=== PATIENT | female | born 1945 | race Caucasian/White ===

== ENCOUNTER 2023-06-20 10:44 | Inpatient (IN) | payer OTHER ==
--- OUTSIDE RECORDS SUMMARY | 2023-06-20 10:48 | XMS REPORT | Continuity of Care Document ---
Author Name Unknown Address 1200 [facility] [address] thconnect Address 1200 [facility]. 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 Role Phone Jaime Cardona Attending Clinician Jaime Martin Admitting Clinician Kathy torres Payers Payer Name Policy Type Policy Number Effective Date Expirati on Date Source Encounters Start Date/Time End Date/Time Encounter Type Admission Type Attending Clinicians Care Facility Care Department Encounter ID Source 2019-08-31 11:00:00 2019-08-31 11:00:00 Outpatient Jaime Cardona [facility] MMRI [id number] [facility] Results Test Description Test Time Test Comments Results Resul t Comments Source - MRI C-SPINE W/O CONT 2018-10-31 10:49:00 FAX: Jaime Ozuna [phone] [place]: St: REG Name: JUDE PERSON [facility] : 1945 Age/S: 73/F [address] [facility] Unit #: [id number] Loc: E.MRI [place], [place]: [place] [id number] Acct: [id number] Dis Date: Status: REG CLI PHONE #: [phone] Exam Date: 10/31/2018 1003 FAX #: [phone] Reason: CERVICALGIA EXAMS: CPT CODE: [id number] MRI C-SPINE W/O CONT 45068 Dictation location: U19. MRI CERVICAL SPINE WITHOUT CONTRAST HISTORY: Cervicalgia TECHNIQUE: Multiplanar and multiple pulse sequences were obtained through the cervical spine without contrast. COMPARISON: None. FINDINGS: The cervical alignment is straightened. The C1-C2 relation and craniocervical junction are preserved. No signal intensity changes are present in the spinal cord. At the C2-C3 level, no spinal canal stenosis or neuroforaminal narrowing. At the C3-C4 level, 5 mm central disc protrusion and bilateral uncovertebral hypertrophy causes up to mild spinal canal stenosis without neuroforaminal narrowing. At the C4-C5 level, bilateral uncovertebral hypertrophy causes no significant spinal canal stenosis and mild left neuroforaminal narrowing. At the C5-C6 level, posterior disc and osteophyte complex and ligamentum flavum thickening causes moderate spinal canal stenosis and severe bilateral neuroforaminal narrowing. At the C6-C7 level, posterior disc and osteophyte complex causes mild spinal canal stenosis severe left neuroforaminal narrowing. At the C7-T1 level, no spinal canal stenosis or neuroforaminal narrowing. Mild bone marrow edema seen along the endplates of C5-C6 likely related to Modic type I endplate degenerative changes. IMPRESSION: PAGE 1 Signed Report (CONTINUED) FAX: Jaime Ozuna [phone] [place]: St: REG Name: JUDE PERSON [facility] : 1945 Age/S: 73/F [address] [employer] Unit #: [id number] Loc: E.MRI [place], [place]: [place] [id number] Acct: [id number] Dis Date: Status: REG CLI PHONE #: [phone] Exam Date: 10/31/2018 1003 FAX #: [phone] Reason: CERVICALGIA EXAMS: CPT CODE: [id number] MRI C-SPINE W/O CONT 59700 (Continued) Moderate cervical spondylosis with severe neuroforaminal narrowing at C5-C6 and C6-C7. Up to moderate spinal canal stenosis greatest at C5-C6. at 1049 Reported and signed by: Demetrice Barrios M.D. CC: Jaime Cardona MD Technologist: GLORIA CORRALES [facility] Date/Time/By: 10/31/2018 (1920) : By: [email or web address] PAGE 2 Signed Report FAX: Jaime Ozuna [phone] [place]: St: REG Name: JUDE PERSON [facility] : 1945 Age/S: 73/F [address] [facility] [employer] Unit #: [id number] Loc: E.MRI [place], [place]: [place] [id number] Acct: [id number] Dis Date: Status: REG CLI PHONE #: [phone] Exam Date: 10/31/2018 1003 FAX #: [phone] Reason: CERVICALGIA EXAMS: CPT CODE: [id number] MRI C-SPINE W/O CONT 09869 (Continued) Orig Print D/T: S: 10/31/2018 (6420) PAGE 3 Signed Report
--- NOTE | 2023-06-20 11:15 | RAD REPORT ---
EXAM DESCRIPTION: RAD - Chest Single View - 06/20/2023 11:09 am CLINICAL HISTORY: hypotension Chest pain. COMPARISON: Chest Pa And Lat (2 Views) dated 08/19/2018; Chest Single View dated 04/20/2016; CHEST PA AND LAT 2 VIEW dated 08/25/2013; CHEST SINGLE VIEW dated 04/30/2012 FINDINGS: Portable technique limits examination quality. The lungs are emphysematous but grossly clear. The heart is normal in size. No displaced fractures. IMPRESSION: No acute intrathoracic process suspected.
[2023-06-20 12:09] LABS: Hematocrit 39.6 % (36.0-45.0); MCV 94.7 fL (80-100); Platelets 353 thou/uL (152-406); RBC Red Blood Cell Count 4.18 M/uL (3.86-4.86)
[2023-06-20 12:10] LABS: Absolute Lymphocytes (CBC) 0.9 K/uL (0.7-4.9); Lymphocytes % 4.9 % (15.3-44.8); MPV 7.8 fL (7.6-11.3)
[2023-06-20 12:17] LABS: Protime INR 1.17
[2023-06-20 12:29] LABS: Bilirubin Total 0.7 mg/dL (0.2-1.0); Protein, Total 7.5 g/dL (6.4-8.2)
[2023-06-20 12:31] LABS: Blood Morphology Comment NOT SEEN (NOT SEEN); Platelet Estimate ADEQ; White Blood Cell Scan OK (OK)
[2023-06-20 12:33] LABS: Troponin High Sensitivity 260.3 pg/mL (<58.9)
--- NOTE | 2023-06-20 12:39 | RAD REPORT ---
EXAM DESCRIPTION: CT - Head C Spine Cap Terrence Juan - 06/20/2023 12:17 pm CLINICAL HISTORY: Trauma, head and neck injury. Chest, abdomen and pelvis pain. fall, hypotension, head/back pain COMPARISON: <Comparisons> TECHNIQUE: CT head without contrast. CT cervical spine without contrast with coronal and sagittal reformatted images. CT chest, abdomen and pelvis with IV contrast (approximately 100 mL nonionic IV contrast) with estes l and sagittal reformatted images of the spine. All CT scans are performed using dose optimization technique as appropriate and may include automated exposure control or mA/KV adjustment according to patient size. FINDINGS: CT HEAD WITHOUT CONTRAST: No intracranial hemorrhage, hydrocephalus or extra-axial fluid collection. Moderate generalized brain atrophy is present with mild periventricular and deep white matter chronic microvascular ischemic ch anges. No areas of brain edema or midline shift. The paranasal sinuses and mastoids are essentially clear. The calvarium is intact. CT CERVICAL SPINE WITHOUT CONTRAST: No fracture or subluxation. Moderate multilevel cervical degenerative changes are present, most notab le at C5-6. The prevertebral soft tissues are normal in thickness. CT CHEST, ABDOMEN, PELVIS WITH CONTRAST: The lungs are emphysematous with mild atelectasis in the posterior right lower lobe.No pneumothorax o r pericardial/pleural fluid. No evidence of intra-abdominal visceral injury, free fluid or free air. Moderate stool is present thr oughout the colon. No pelvic mass or hematoma. Mild osteoporotic compression deformities are seen involving T8 and T12, age indeterminate. Paraspina l soft tissues at this level are slightly thickened. IMPRESSION: Negative for definitive acute traumatic findings. Age indeterminate mild compression fractures involving the thoracic spine. These may represent acute to subacute time frame fractures given the mild thickening of the surrounding paraspinal tissues. Fol low-up nonemergent MRI imaging could be performed if the patient has significant back pain.
[2023-06-20 12:53] LABS: Specific Gravity 1.023 (1.005-1.030); Urine Bacteria >50 /HPF (<20); Urine Bilirubin NEGATIVE (Negative); Urine Blood Trace (Negative); Urine Clarity Extremely Turbid (Clear); Urine Color Yellow (Yellow); Urine Glucose NEGATIVE (Negative); Urine Mucus 1+ /HPF (None Seen); Urine Protein 1+ (Negative); Urine RBC <5 /HPF (None Seen); Urine Urobilinogen Normal (Normal)
[2023-06-20] MEDS ORDERED: CEFTRIAXONE 1000 MG/VIAL ONE ×2 (13:01→20:42)
[2023-06-20] MEDS ORDERED: ASPIRIN 81 MG CHEWABLE TABLET ONE (13:01)
[2023-06-20] MEDS ORDERED: NA CHLORIDE 0.9% 500 ML ONE ×2 (13:02→20:42)
--- NOTE | 2023-06-20 13:28 | RAD REPORT ---
EXAM DESCRIPTION: RAD - Ankle Left 3 View - 06/20/2023 1:06 pm CLINICAL HISTORY: PAIN COMPARISON: No comparisons TECHNIQUE: Left ankle, 3 views. FINDINGS: No fracture, dislocation or periosteal reaction. Advanced tibiotalar joint degenerative ch anges with osseous remodeling and joint space loss. Soft tissue densities along the periarticular reg ion most pronounced anteriorly and posteriorly, suggestive of a joint effusion or possibly non minera lized intra-articular bodies. Deformity of the distal tibia shaft may indicate sequelae of a remote f racture. . No soft tissue abnormality. IMPRESSION: No acute osseous abnormality. Advanced degenerative changes at the tibiotalar articulati on. Large joint effusion versus non mineralized intra-articular bodies.
--- NOTE | 2023-06-20 14:33 | EDPHYS ---
Physician Documentation [facility] Name: Soraya Collier Age: 77 yrs Sex: Female : 1945 Arrival Date: 06/20/2023 Time: 10:44 Bed 15 Private MD: ED Physician Brad Curran HPI: 06/20 14:02 This 77 yrs old Female presents to ER via EMS with complaints of Blood Pressure rn Problem, falls. 14:02 Details of fall: The patient fell from an upright position. Onset: The symptoms/episode rn began/occurred just prior to arrival. Associated injuries: The patient sustained injury to the head, Left ankle. Severity of symptoms: At their worst the symptoms were mild, in the emergency department the symptoms are unchanged. The patient has experienced similar episodes in the past. Patient reports multiple episodes of falls recently, fall prior to arrival, got lightheaded, struck head and injured left ankle. Unable to walk on ankle. Has history of atrial fibrillation and noted to be heart rate in 150s with hypotension with EMS. Patient reports overall feels better and is noncompliant with A-fib medication including blood thinners due to cost.. Historical: - Allergies: 10:49 No Known Allergies; bp - Home Meds: 10:49 hydrocodone-acetaminophen 7.5-325 mg Oral tablet [Active]; irbesartan 150 mg oral bp tablet [Active]; aspirin 81 mg Oral tablet,chewable [Active]; memantine 10 mg oral tablet [Active]; atorvastatin 10 mg oral tablet [Active]; - PMHx: 10:49 Atrial Fib; Dementia; bp 11:01 Chronic obstructive lung disease; bp - Immunization history:: Adult Immunizations up to date. - Social history:: Smoking status: Patient denies any tobacco usage or history of. - Family history:: not pertinent. - Hospitalizations: : No recent hospitalization is reported. ROS: 14:02 Constitutional: Negative for fever, chills, and weight loss, Eyes: Negative for injury, rn pain, redness, and discharge, Neck: Negative for injury, pain, and swelling, Cardiovascular: Positive for palpitations Respiratory: Negative for shortness of breath, cough, wheezing, and pleuritic chest pain, Abdomen/GI: Negative for abdominal pain, nausea, vomiting, diarrhea, and constipation, Back: Positive for chronic back pain MS/Extremity: Positive for left ankle pain Skin: Negative for injury, rash, and discoloration, Neuro: Positive for generalized weakness Exam: 14:02 Constitutional: This is a well developed, well nourished patient who is awake, alert, rn and in no acute distress. Head/Face: Normocephalic, contusion to left periorbital region without laceration Cardiovascular: Regular rate and rhythm. No pulse deficits. Respiratory: No increased work of breathing, no retractions or nasal flaring. Abdomen/GI: Soft, non-tender MS/ Extremity: Pulses equal, no cyanosis. Neuro: Awake and alert, GCS 15, moves all 4 extremities with equal strength. Sensation intact. No facial droop. Follows all commands. Oriented to person but not time. 14:02 ECG was reviewed by the Attending Physician. rn Vital Signs: 10:48 BP 85 / 40; Pulse 120; bp 10:48 BP 148 / 61; Pulse 90; Resp 16; Temp 97.8; Pulse Ox 99% on 3 lpm NC; bp 12:30 BP 151 / 75; Pulse 97; Resp 16; Pulse Ox 99% ; bp 14:24 BP 153 / 92; Pulse 87; Resp 16; Pulse Ox 100% ; bp 19:50 BP 136 / 103; Pulse 85; Resp 17 S; Temp 98.1; Pulse Ox 97% on R/A; ha1 10:48 ON SCENE bp MDM: 10:47 Patient medically screened. rn 14:09 Differential diagnosis: abrasion, closed head injury, contusion, fracture, sprain, rn strain. Data reviewed: vital signs, nurses notes, lab test result(s), EKG, radiologic studies, CT scan, plain films, and as a result, I will admit patient. Consideration of Admission/Observation Patient was admitted/placed on observation. Escalation of care including admission/observation considered. Care significantly affected by the following chronic conditions: afib, dementia. Counseling: I had a detailed discussion with the patient and/or guardian regarding the historical points, exam findings, and any diagnostic results supporting the discharge/admit diagnosis, lab results, radiology results, the need for outpatient follow up, to return to the emergency department if symptoms worsen or persist or if there are any questions or concerns that arise at home. 06/20 10:51 Order name: Blood Culture Adult (2) rn 06/20 10:51 Order name: CBC with Diff; Complete Time: 12:38 rn 06/20 10:51 Order name: CMP; Complete Time: 12:38 rn 06/20 10:51 Order name: Lactate w/ 2H reflex if indic.; Complete Time: 12:38 rn 06/20 10:51 Order name: Protime (+inr); Complete Time: 12:38 rn 06/20 10:51 Order name: Ptt, Activated; Complete Time: 12:38 rn 06/20 10:51 Order name: Urinalysis w/ reflexes; Complete Time: 13:15 rn 06/20 10:51 Order name: Troponin High Sensitivity; Complete Time: 12:38 rn 06/20 10:51 Order name: BNP; Complete Time: 12:38 rn 06/20 12:14 Order name: CBC Smear Scan; Complete Time: 12:38 EDAK 06/20 12:32 Order name: Manual Differential; Complete Time: 12:38 [facility] 06/20 12:48 Order name: CREATININE WHOLE BLOOD; Complete Time: 13:15 [facility] 06/20 10:51 Order name: Chest Single View XRAY; Complete Time: 12:38 rn 06/20 10:51 Order name: CT Traumagram (Head C Spine CAP W Con); Complete Time: 12:40 rn 06/20 12:38 Order name: XRAY Ankle LEFT 3 view; Complete Time: 13:39 rn 06/20 10:51 Order name: EKG; Complete Time: 10:51 rn 06/20 10:51 Order name: Accucheck; Complete Time: 10:59 rn 06/20 10:51 Order name: Cardiac monitoring; Complete Time: 10:59 rn 06/20 10:51 Order name: EKG - Nurse/Tech; Complete Time: 12:39 rn 06/20 10:51 Order name: IV Saline Lock - Large Bore; Complete Time: 10:59 rn 06/20 10:51 Order name: Labs collected and sent; Complete Time: 11:58 rn 06/20 10:51 Order name: O2 Per Protocol; Complete Time: 10:59 rn 06/20 10:51 Order name: O2 Sat Monitoring; Complete Time: 10:59 rn 06/20 10:51 Order name: Vital Signs; Complete Time: 10:59 rn 06/20 15:11 Order name: Misc. Order: consult drug abuse social worker; Complete Time: 17:25 rn EC:02 Rate is 89 beats/min. Rhythm is regular. QRS Clio is Normal. HI interval is normal. QRS rn interval is normal. QT interval is normal. No Q waves. T waves are Normal. No ST changes noted. Clinical impression: NSR w/ Non-specific ST/T Changes. Interpreted by me. Reviewed by me. Administered Medications: 10:59 Drug: NS 0.9% IV 500 ml IV at bolus once Route: IV; Rate: bolus; Site: left antecubital;bp 13:00 Drug: Rocephin IV 1 grams IV at calculated rate once; Given slow IV push per pharmacy bp instructions Route: IV; Rate: calculated rate; Site: left antecubital; 13:00 Drug: Aspirin PO Chewable Tablet 324 mg PO once; 81 mg tablets x 4 Route: PO; bp 15:19 Follow up: Response: No adverse reaction bp 16:37 Drug: [place] PO 10 mg-325 mg 1 tabs PO once Route: PO; bp Disposition Summary: 06/20/23 14:33 Hospitalization Ordered Notes: Hospitalization Status: Inpatient Admission rn Provider: Lito Noble rn Condition: Stable rn Problem: new rn Symptoms: have improved rn Bed/Room Type: Standard rn Location: Telemetry/MedSurg (Inpatient)(06/20/23 20:31) jb4 Room Assignment: [facility](06/20/23 20:31) jb4 Diagnosis - Paroxysmal atrial fibrillation rn - Weakness rn - Unspecified injury of head, initial encounter rn - Sprain of unspecified ligament of left ankle, initial encounter rn - 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 EDAK EDMS 18:39 14:33 Telemetry/MedSurg (Inpatient) rn kb3 18:39 14:33 rn kb3 20:31 18:39 [facility] ER HOLD kb3 jb4 20:31 18:39 ERHOLD- kb3 jb4
--- NOTE | 2023-06-20 14:33 | ER ---
Nurse's Notes [facility] Name: Soraya Collier Age: 77 yrs Sex: Female : 1945 Arrival Date: 06/20/2023 Time: 10:44 Bed 15 Private MD: Diagnosis: Paroxysmal atrial fibrillation;Weakness;Unspecified injury of head, initial encounter;Sprain of unspecified ligament of left ankle, initial encounter;Wedge compression fracture of unspecified thoracic vertebra-subacute, mild Presentation: 06/20 10:48 Chief complaint: EMS states: FALLS AND LOW BP. Coronavirus screen: At this time, the bp client does not indicate any symptoms associated with coronavirus-19. Ebola Screen: No symptoms or risks identified at this time. Initial Sepsis Screen: Does the patient meet any 2 criteria? No. Patient's initial sepsis screen is negative. Does the patient have a suspected source of infection? No. Patient's initial sepsis screen is negative. Risk Assessment: Do you want to hurt yourself or someone else? Patient reports no desire to harm self or others. Onset of symptoms is unknown. 10:48 Method Of Arrival: EMS: [facility] bp 10:48 Acuity: REN 3 bp Triage Assessment: 10:48 General: Appears in no apparent distress. slender, Behavior is calm, cooperative, bp anxious. Pain: Denies pain. Historical: - Allergies: 10:49 No Known Allergies; bp - Home Meds: 10:49 hydrocodone-acetaminophen 7.5-325 mg Oral tablet [Active]; irbesartan 150 mg oral bp tablet [Active]; aspirin 81 mg Oral tablet,chewable [Active]; memantine 10 mg oral tablet [Active]; atorvastatin 10 mg oral tablet [Active]; - PMHx: 10:49 Atrial Fib; Dementia; bp 11:01 Chronic obstructive lung disease; bp - Immunization history:: Adult Immunizations up to date. - Social history:: Smoking status: Patient denies any tobacco usage or history of. - Family history:: not pertinent. - Hospitalizations: : No recent hospitalization is reported. Screenin:50 [facility] ED Fall Risk Assessment (Adult) History of falling in the last 3 months, bp including since admission Yes- fall prone (multiple falls) (3 pts). Abuse screen: Denies threats or abuse. Denies injuries from another. Nutritional screening: No deficits noted. Tuberculosis screening: No symptoms or risk factors identified. Assessment: 10:50 General: PT DENIES ACUTE MEDICAL COMPLAINT OR PAIN. bp 12:30 Reassessment: No changes from previously documented assessment. Patient is alert, bp oriented x 3, equal unlabored respirations, skin warm/dry/pink. 14:27 Reassessment: Patient appears in no apparent distress at this time. Patient and/or bp family updated on plan of care and expected duration. Pain level reassessed. 20:25 Reassessment: attempted to give report . ha1 21:00 Reassessment: report given to RUDY Ruiz. ha1 Vital Signs: 10:48 BP 85 / 40; Pulse 120; bp 10:48 BP 148 / 61; Pulse 90; Resp 16; Temp 97.8; Pulse Ox 99% on 3 lpm NC; bp 12:30 BP 151 / 75; Pulse 97; Resp 16; Pulse Ox 99% ; bp 14:24 BP 153 / 92; Pulse 87; Resp 16; Pulse Ox 100% ; bp 19:50 BP 136 / 103; Pulse 85; Resp 17 S; Temp 98.1; Pulse Ox 97% on R/A; ha1 10:48 ON SCENE bp ED Course: 10:47 Patient arrived in ED. bp 10:47 Brad Curran MD is Attending Physician. rn 10:48 Ari Myers, RUDY is Primary Nurse. bp 10:49 Triage completed. bp 10:50 Patient has correct armband on for positive identification. bp 11:00 Inserted Maintain EMS IV. Dressing intact. Good blood return noted. Site clean \T\ dry. bp Gauge \T\ site: 18 GA LEFT AC. 11:01 Arm band placed on. bp 11:10 Chest Single View XRAY In Process Unspecified. EDMS 11:53 Lab(s) recollected, by me, sent to lab. First set of blood cultures drawn by me. em1 Inserted saline lock: 22 gauge in right forearm, using aseptic technique. Blood collected. 11:57 BNP Sent. em1 11:57 Troponin High Sensitivity Sent. em1 11:57 CBC with Diff Sent. em1 11:57 CMP Sent. em1 11:57 Lactate w/ 2H reflex if indic. Sent. em1 11:57 Protime (+inr) Sent. em1 11:57 Ptt, Activated Sent. em1 12:19 CT Traumagram (Head C Spine CAP W Con) In Process Unspecified. EDMS 13:07 XRAY Ankle LEFT 3 view In Process Unspecified. EDMS 14:32 Lito Noble is Hospitalizing Provider. rn 21:12 No provider procedures requiring assistance completed. Patient admitted, IV remains in ha1 place. 21:13 Provided Education on: need for admit . ha1 Administered Medications: 10:59 Drug: NS 0.9% IV 500 ml IV at bolus once Route: IV; Rate: bolus; Site: left antecubital;bp 13:00 Drug: Rocephin IV 1 grams IV at calculated rate once; Given slow IV push per pharmacy bp instructions Route: IV; Rate: calculated rate; Site: left antecubital; 13:00 Drug: Aspirin PO Chewable Tablet 324 mg PO once; 81 mg tablets x 4 Route: PO; bp 15:19 Follow up: Response: No adverse reaction bp 16:37 Drug: [place] PO 10 mg-325 mg 1 tabs PO once Route: PO; bp Medication: 10:50 VIS not applicable for this client. bp Outcome: 14:33 Decision to Hospitalize by Provider. rn 21:12 Admitted to Med/surg accompanied by tech, family with patient, via stretcher, room 212, ha1 21:12 Condition: stable 21:12 Discharge instructions given to patient, family, Instructed on the need for admit, Demonstrated understanding of instructions, 21:24 Patient left the ED. ha1 Signatures: Dispatcher [employer] EDMS Brad Curran MD MD rn Martinez, Eric em1 Ari Myers RN RN bp Ayala, Heidy, RN RN ha1
[2023-06-20] MEDS ORDERED: HYDROCODONE/APAP 10/325 TAB ONE (16:33)
--- NOTE | 2023-06-20 17:28 | P.HP ---
Certification for Inpatient Patient admitted to: Observation With expected LOS: >2 Midnights Patient will require the following post-hospital care: None Practitioner: I am a practitioner with admitting privileges, knowledge of patient current condition, hospital course, and medical plan of care. Services: Services provided to patient in accordance with Admission requirements found in Title 42 Section 412.3 of the Code of Federal Regulations Patient History Date of Service: 06/20/23 Reason for admission: Afib with RVR History of Present Illness: Soraya Fernandes is a 77-year-old female with medical past medical history of atrial fibrillation, Alzheimer's, COPD who presents to the ED with complaints of frequent falls. EMS reports hypotension and Afib with RVR during transit. ER has stabilized condition. Family reports she has fallen frequently but was able to ambulate and cook for herself a few days ago. reports she had run out of Alzheimer's medication and heart medication. He is unable to afford the heart medication due to the new hobbs. He is working with social service coordinator to provide help at home. On examination, she was extremely agitated, coming out of the bed, and confused. Facial bruising present to left maxilla. Bruising to left ankle. and son at the bedside and son plans to stay the night to be her sitter. Initial vitals BP 148 / 61; Pulse 90; Resp 16; Temp 97.8; Pulse Ox 99% on 3 lpm NC Laboratory evaluation WBC 19.4, neutrophils 90.4, potassium 3.0, troponin 260.3, BNP 2423, UA with bacteria greater than 50, hyaline casts 5-10. Left ankle x-ray reports "No acute osseous abnormality. Advanced degenerative changes at the tibiotalar articulation. Large joint effusion versus non mineralized intra-articular bodies." CT head reports "No intracranial hemorrhage, hydrocephalus or extra-axial fluid collection. Moderate generalized brain atrophy is present with mild periventricular and deep white matter chronic microvascular ischemic changes. No areas of brain edema or midline shift. The paranasal sinuses and mastoids are essentially clear. The calvarium is intact" CT c spine reports " No fracture or subluxation. Moderate multilevel cervical degenerative changes are present, most notable at C5-6. The prevertebral soft tissues are normal in thickness." CT CAP with contrast reports "Negative for definitive acute traumatic findings. Age indeterminate mild compression fractures involving the thoracic spine. These may represent acute to subacute time frame fractures given the mild thickening of the surrounding paraspinal tissues. Follow-up nonemergent MRI imaging could be performed if the patient has significant back pain." CXR reports "Portable technique limits examination quality. The lungs are emphysematous but grossly clear. The heart is normal in size. No displaced fractures. IMPRESSION: No acute intrathoracic process suspected." Soraya will be admitted to hospitalist service for further evaluation and treatment. of Afib with RVR. Her son will stay the night to sit with her Allergies No Known Allergies Allergy (Unverified 04/30/12 12:37) Home Medications: Aclidinium [employer] [Tudorza Pressair] 400 mcg IH BID 04/30/12 Cyanocobalamin [Vitamin B-12*] 1,000 mcg PO DAILY 04/30/12 Multivitamin [Multivitamins] 1 each PO DAILY 04/30/12 diazePAM [Valium*] 0.5 mg PO QIDP PRN 04/30/12 predniSONE [Prednisone*] 10 mg PO DAILY 04/30/12 Guaif/Dm [Robitussin Dm] 5 ml PO Q4HP PRN #0 ucup 05/02/12 Nicotine [Nicoderm Cq] 1 each TD DAILY #0 patch.td24 05/02/12 Rivaroxaban [Xarelto] 20 mg PO DAILY #30 tablet 05/02/12 Sotalol HCl [Betapace*] 80 mg PO BID #60 tab 05/02/12 - Past Medical/Surgical History Diabetic: No -: Alzheimer's -: COPD -: Atrial fibrillation -: Frequent falls Past Surgical History: Reviewed- Non-Contributory - Social History Alcohol use: No CD- Drugs: Yes Caffeine use: Yes Review of Systems is unable to be obtained Physical Examination - Physical Exam General: Alert, Confused HEENT: Other (Bruising to left maxilla) Neck: 2+ carotid pulse no bruit, JVD not distended Respiratory: Clear to auscultation bilaterally Cardiovascular: No edema, Normal pulses, Regular rate/rhythm, Normal S1 S2 Capillary refill: <2 Seconds Gastrointestinal: Normal bowel sounds, Soft and benign, Non-distended, No tenderness Integumentary: Skin breakdown (face and left ankle) Neurological: Other (not conversing) - Studies Laboratory Data (last 24 hrs) 06/20/23 06/20/2306/20/24 11:53 11:53 11:53 WBC 19.40 H Hgb 13.3 Hct 39.6 Plt Count 353 PT 12.8 H INR 1.17 APTT 31.3 Sodium 140 Potassium 3.0 L BUN 25 H Creatinine 0.95 Glucose 124 H Total Bilirubin 0.7 AST 11 L ALT 13 Alkaline Phosphatase 133 H Assessment and Plan - Plan Assessment and plan Trauma falls, frequent falls, history of Alzheimer noncompliant with alzheimer medications Mild compression fracture involving thoracic spine Aggitation -Restart home medication when available -Pain medication -Supportive care -Son will be with a sitter eddie 06/20 -TUBE WINDER HAND consulted -PT consult -UA with hyaline casts 5-10 -IV fluids 500 mL normal saline given in the ED Afib with RVR in a patient with Afib, noncompliant Elevated troponin -Restart home medications when available -BNP 2423 -Troponin 260.3, serial pending -Cardiology consult -IV fluids 500 mL normal saline given in the ED -EKG- Rate is 89 beats/min. Rhythm is regular. QRS [place] is Normal. [place] interval is normal. QRS interval is normal. QT interval is normal. No Q waves. T waves are Normal. No ST changes noted. Clinical impression: NSR w/ Non-specific ST/T Changes. Weakness 2/2 dehydration Cachectic Decreased p.o. intake -Consult dietitian -Monitor nutrition UTI Leukocytosis -WBC 19.4, neutrophils 90.4 -UA with bacteria greater than 50, -Rocephin Hypokalemia -Potassium 3.0 -Replace as needed -Monitor in a.m. lab History of COPD -Oxygen supplementation, on 3 LNC in ED -Restart home medications when available DVT PPx Lovenox DNR LOS 2 to 3 days Discharge Plan: Home Plan to discharge in: 48 Hours - Advance Directives Does patient have a Living Will: No Does patient have a Durable POA for Healthcare: No Time Spent Managing Pts Care (In Minutes): 50
[2023-06-20] MEDS ORDERED: LORazepam 2 MG/ML VIAL IV PRN (18:02)
[2023-06-20] MEDS: FUROSEMIDE 40 MG/4 ML VIAL IV SCH (20:00)
[2023-06-20] MEDS: KCL 20 MEQ/100 mL IVPB 20 MEQ/100 ML BAG IV SCH (20:00)
[2023-06-20] MEDS ORDERED: FUROSEMIDE 40 MG/4 ML VIAL ONE (20:42)
[2023-06-20] MEDS ORDERED: NA CHLORIDE 0.9% 50 ML ONE (20:44)
[2023-06-20] MEDS: CEFTRIAXONE 1,000 MG in NA CHLORIDE 0.9% 50 ML IVPB SCH (20:59)
[2023-06-20] MEDS ORDERED: ONDANSETRON 4 MG/2 ML VIAL IV PRN (21:08)
[2023-06-20 21:52] VITALS: BMI 14.2
[2023-06-20] MEDS ORDERED: LORazepam 2 MG/ML VIAL ONE (22:56)
[2023-06-20] MEDS: LORazepam 2 MG/ML VIAL IV PRN (23:02)
[2023-06-21] MEDS: METOPROLOL TARTRATE 5 MG/5 ML INJ IV PRN (00:12)
[2023-06-21 04:19] LABS: Absolute Lymphocytes (CBC) 2.1 K/uL (0.7-4.9); Hematocrit 38.1 % (36.0-45.0); Lymphocytes % 18.7 % (15.3-44.8); MCV 94.9 fL (80-100); Platelets 358 thou/uL (152-406); RBC Red Blood Cell Count 4.01 M/uL (3.86-4.86)
[2023-06-21 05:00] LABS: Magnesium 1.8 mg/dL (1.6-2.4)
[2023-06-21 05:18] LABS: Potassium 2.4 mEq/L (3.5-5.1); Troponin High Sensitivity 165.3 pg/mL (<58.9)
[2023-06-21] MEDS ORDERED: KCL 20 MEQ/100 mL IVPB 20 MEQ/100 ML BAG IV SCH (06:00)
[2023-06-21] MEDS: KCL 20 MEQ/100 mL IVPB 20 MEQ/100 ML BAG IV SCH (06:03)
[2023-06-21] MEDS: MORPHINE 2 MG/ML SYR IV PRN (10:09)
[2023-06-21] MEDS: NICOTINE 21 MG/PAT TD SCH (12:30)
[2023-06-21] MEDS: LORAZEPAM 1 MG TABLET PO PRN (12:30)
--- NOTE | 2023-06-21 12:52 | ECHO ---
HEIGHT: 6 ft 0 in WEIGHT: 105 lb 0 oz DATE OF STUDY: 06/21/[address]: Vania Begum 2-DIMENSIONAL: YES M.MODE: YES DOPPLER: YES COLOR FLOW: YES TDS: PORTABLE: YES DEFINITY: BUBBLE STUDY: DIAGNOSIS: ELEVATED BNP CARDIAC HISTORY: CATHERIZATION: NO SURGERY: NO PROSTHETIC VALVE: NO PACEMAKER: NO MEASUREMENTS (cm) DIASTOLIC (NORMALS) SYSTOLIC (NORMALS) IVSd 0.8 (0.6-1.2) LA Diam 2.9 (1.9-4.0) LVEF 55% LVIDd 3.4 (3.5-5.7) LVIDs 2.5 (2.0-3.5) %FS 28% LVPWd 0.9 (0.6-1.2) Ao Diam 2.8 (2.0-3.7) 2 DIMENSIONAL ASSESSMENT: RIGHT ATRIUM: NORMAL LEFT ATRIUM: NORMAL RIGHT VENTRICLE: NORMAL LEFT VENTRICLE: NORMAL TRICUSPID VALVE: MODERATE TRICUSPID REGURGITATION MITRAL VALVE: TRACE MITRAL REGURGITATION PULMONIC VALVE: NOT VISUALIZED AORTIC VALVE: NORMAL PERICARDIAL EFFUSION: NONE AORTIC ROOT: NORMAL LEFT VENTRICULAR WALL MOTION: NORMAL DOPPLER/COLOR FLOW: GRADE I DIASTOLIC DYSFUNCTION COMMENTS: 1. NORMAL LEFT VENTRICULAR SYSTOLIC FUNCTION, EJECTION FRACTION 55-60%, NORMAL WALL MOTION 2. GRADE I DIASTOLIC DYSFUNCTION 3. MODERATE TRICUSPID REGURGITATION 4. MILD PULMONARY HYPERTENSION, RIGHT VENTRICULAR SYSTOLIC PRESSURE 35-40 mmHg TECHNOLOGIST: LOIDA BRIGGS
[2023-06-21] MEDS: HALOPERIDOL LACT 5 MG/ML INJ IV PRN (13:51)
[2023-06-21] MEDS: ENSURE ENLIVE 237 ML CAN PO SCH (13:55)
--- NOTE | 2023-06-21 15:23 | P.PN ---
Date of Service: 06/21/23 Subjective Sleeping with at the bedside Extremely confused requiring Haldol family at bedside ROS 10 point ROS as noted above, otherwise negative Physical Exam General: sleeping, cachectic, confused when awake HEENT: Other (Bruising to left maxilla) Neck: 2+ carotid pulse no bruit, JVD not distended Respiratory: Clear to auscultation bilaterally Cardiovascular: No edema, Normal pulses, RRR, Normal S1 S2, no murmur noted Capillary refill: <2 Seconds Gastrointestinal: Normal bowel sounds, Soft and benign, ND/NT on palpation Integumentary: Skin breakdown (face and left ankle) Neurological: Other (not conversing) Vitals Reviewed Problem list Trauma falls, frequent falls, history of Alzheimer noncompliant with alzheimer medications Mild compression fracture involving thoracic spine Aggitation Afib with RVR in a patient with Afib, noncompliant Elevated troponin Weakness 2/2 dehydration Cachectic Decreased p.o. intake UTI Leukocytosis Hypokalemia History of COPD Assessment and Plan Trauma falls, frequent falls, history of Alzheimer noncompliant with alzheimer medications Mild compression fracture involving thoracic spine Aggitation -Continue home medication when available -Pain medication -Supportive care -Family Sitting with with her all day and night -ANALYST PROGRAMMER consulted -PT consult -UA with hyaline casts 5-10 -IV fluids 500 mL normal saline given in the ED Afib with RVR in a patient with Afib, noncompliant Elevated troponin -Restart home medications when available -BNP 2423 -Troponin 260.3, 199.6, 165.3 -Cardiology consult- recommended losartan 25 mg TID, lasix 20 mg D, stop lovenox, continue ASA- high fall risk, will not tolerate NOAC -IV fluids 500 mL normal saline given in the ED -EKG- Rate is 89 beats/min. Rhythm is regular. QRS [place] is Normal. [place] interval is normal. QRS interval is normal. QT interval is normal. No Q waves. T waves are Normal. No ST changes noted. Clinical impression: NSR w/ Non-specific ST/T Changes. Weakness 2/2 dehydration Cachectic Decreased p.o. intake -Consult dietitian -Monitor nutrition UTI Leukocytosis -WBC 11.10, neutrophils 73.3- improved -UA with bacteria greater than 50, -Rocephin Hypokalemia -Potassium 2.4 -Replace as needed -Monitor in a.m. lab History of COPD -Oxygen supplementation, on 3 LNC in ED -Restart home medications when available DVT PPx Lovenox- cardiology recommends stopping, not a candidate for aggressive cardiac workup DNR LOS 2 to 3 days <Codi Lott - Last Filed: 06/22/23 06:17> Patient seen and examined, plan of care discussed with Ms. Lott. Patient noted to be quite agitated. relates patient's current condition to the fall she had about 3 [address] Patient sees Dr. Holland who was diagnosed her with Alzheimer's dementia. Will treat agitation with Haldol as needed. Diet as tolerated. PT evaluation. Cardiology input appreciated. <carson colunga - Last Filed: 06/22/23 18:08>
--- NOTE | 2023-06-21 16:36 | P.CNS ---
Date of Consult: 06/21/23 Chief Complaint: Afib with RVR History of Present Illness: Patient with PMH of Atrial fibrillation, Chronic diastolic heart failure, presented with weakness, freqent falls, has not been complaint with medications. Allergies No Known Allergies Allergy (Unverified 04/30/12 12:37) Home Medications: Aclidinium [place] [Tudorza Pressair] 400 mcg IH BID 04/30/12 Cyanocobalamin [Vitamin B-12*] 1,000 mcg PO DAILY 04/30/12 Multivitamin [Multivitamins] 1 each PO DAILY 04/30/12 diazePAM [Valium*] 0.5 mg PO QIDP PRN 04/30/12 predniSONE [Prednisone*] 10 mg PO DAILY 04/30/12 Guaif/Dm [Robitussin Dm] 5 ml PO Q4HP PRN #0 ucup 05/02/12 Nicotine [Nicoderm Cq] 1 each TD DAILY #0 patch.td24 05/02/12 Rivaroxaban [Xarelto] 20 mg PO DAILY #30 tablet 05/02/12 Sotalol HCl [Betapace*] 80 mg PO BID #60 tab 05/02/12 - Past Medical/Surgical History Diabetic: No -: Alzheimer's -: COPD -: Atrial fibrillation -: Frequent falls - Social History Smoking Status: Current every day smoker Alcohol use: No CD- Drugs: Yes Caffeine use: Yes Review of Systems 10-point ROS is otherwise unremarkable Physical Examination Temp Pulse Resp BP Pulse Ox 97.5 F 95 H 20 140/78 95 06/21/23 12:00 06/21/23 12:00 06/21/23 12:00 06/21/23 12:00 06/21/23 12:00 General: Alert HEENT: Atraumatic Neck: Supple Respiratory: Clear to auscultation bilaterally Cardiovascular: No edema, Regular rate/rhythm Gastrointestinal: Normal bowel sounds Musculoskeletal: No clubbing - Problems (1) Atrial fibrillation Current Visit: Yes Status: Acute Plan: patient is currently in sinus rhythm. start Lopressor 25 mg po BID Continue ASA 81 mg daily. discussed with son need for NOAC but patient is cachectic with high fall risk, so will just continue ASA and monitor for now. (2) Chronic diastolic heart failure Current Visit: Yes Status: Acute Plan: patient looks dry on exam, lower lasix dose to 20 mg po daily please replace K for goal more than 4 (3) Mild pulmonary hypertension Current Visit: Yes Status: Acute Plan: continue lasix 20 mg daily (4) Type 2 AR (myocardial infarction) Current Visit: Yes Status: Acute Plan: Troponin is mild elevated with no significant delta, most likely type 2 AR. Echo shows normal EF. Continue ASA 81 mg daily Stop lovenox, looking at patient overall condition, she will not be a candidate for aggressive cardiac work up.
[2023-06-21] MEDS: METOPROLOL TAR 25 MG TAB PO SCH (17:43)
[2023-06-21] MEDS ORDERED: FUROSEMIDE 40 MG/4 ML VIAL IV SCH (21:00)
[2023-06-21] MEDS: ENOXAPARIN 60 MG/0.6 ML SQ SCH (21:23)
[2023-06-22 04:25] LABS: Absolute Lymphocytes (CBC) 2.5 K/uL (0.7-4.9); Hematocrit 40.4 % (36.0-45.0); MCV 94.1 fL (80-100); MPV 7.7 fL (7.6-11.3); Platelets 394 thou/uL (152-406)
[2023-06-22 04:47] LABS: Magnesium 1.9 mg/dL (1.6-2.4); Potassium 3.3 mEq/L (3.5-5.1)
[2023-06-22] MEDS: FUROSEMIDE 20 MG/ 2ML VIAL IV SCH (08:40)
[2023-06-22] MEDS: POTASSIUM CL SA 10 MEQ TAB PO ONE (08:41)
[2023-06-22] MEDS: LOSARTAN POTASSIUM 50 MG TABLET PO SCH (08:42)
[2023-06-22] MEDS: MEMANTINE HCL 10 MG TABLET PO SCH (08:43)
[2023-06-22] MEDS ORDERED: LOSARTAN POTASSIUM 50 MG TABLET PO SCH (09:00)
[2023-06-22] MEDS ORDERED: VALSARTAN 80 MG TAB PO SCH (09:00)
[2023-06-22] MEDS: HYDROCODONE/APAP 7.5/325 MG TAB PO SCH (09:00)
[2023-06-22] MEDS: ASPIRIN EC 81 MG TAB PO SCH (10:01)
--- NOTE | 2023-06-22 12:22 | P.PN ---
Date of Service: 06/22/23 Subjective Awake and alert this AM, conversation for the first time Working with Physical therapy ROS 10 point ROS as noted above, otherwise negative Physical Exam General: AAOx3, cachectic, NAD HEENT: Other (Bruising to left maxilla) Neck: 2+ carotid pulse no bruit, JVD not distended Respiratory: Clear to auscultation bilaterally, symmetrical chest wall movement, on room air Cardiovascular: No edema, Normal pulses, RRR, S1 S2 present, no murmur noted Capillary refill: <2 Seconds Gastrointestinal: Normoactive bowel sounds, Soft and benign, ND/NT on palpation Integumentary: Skin breakdown (face and left ankle) Neurological: Other (not conversing) Vitals Reviewed Problem list Trauma falls, frequent falls, history of Alzheimer noncompliant with alzheimer medications Mild compression fracture involving thoracic spine Aggitation Afib with RVR in a patient with Afib, noncompliant Elevated troponin Weakness 2/2 dehydration Cachectic Decreased p.o. intake UTI Leukocytosis Hypokalemia History of COPD Assessment and Plan Trauma falls, frequent falls, history of Alzheimer noncompliant with alzheimer medications Mild compression fracture involving thoracic spine Aggitation -Continue home medication when available -Pain medication -Supportive care -Family Sitting with with her all day and night -BEEF CATTLE FARM MANAGER consulted -PT consult-gait training 150' -UA with hyaline casts 5-10 -IV fluids 500 mL normal saline given in the ED Afib with RVR in a patient with Afib, noncompliant Elevated troponin -Restart home medications when available -BNP 2423 -continue lasix daily -Troponin 260.3, 199.6, 165.3 -ECHO 06/21 Reports "EF 55%,Trace mitral Regurgitaion, Modarate tricuspid Regurgitation, mild pulmonary HTN." -Cardiology consult- recommended losartan 25 mg TID, lasix 20 mg D, stop lovenox, continue ASA- high fall risk, will not tolerate NOAC -IV fluids 500 mL normal saline given in the ED -EKG- Rate is 89 beats/min. Rhythm is regular. QRS [place] is Normal. [place] interval is normal. QRS interval is normal. QT interval is normal. No Q waves. T waves are Normal. No ST changes noted. Clinical impression: NSR w/ Non-specific ST/T Changes. Weakness 2/2 dehydration Cachectic Decreased p.o. intake -Consult dietitian- minced and moist diet with thin liquids -Monitor nutrition -PT consulted- gait training 150' UTI Leukocytosis -WBC 9.4-improved -UA with bacteria greater than 50, -continue Rocephin Hypokalemia -Potassium 3.3 -Replace as needed -Monitor in a.m. lab History of COPD -Oxygen supplementation PRN -Restart home medications when available DVT PPx Lovenox- cardiology recommends stopping, not a candidate for aggressive cardiac workup DNR LOS 2 to 3 days <Codi Lott - Last Filed: 06/22/23 11:59> Patient seen and examined with Ms. Nikunj Lott. He is intermittently agitated and suspect hyperactive delirium. Leukocytosis resolved Cardiology input appreciated regarding elevated troponin. Haldol as needed for hyperactive delirium. Continue antibiotics. Fall risk. Poor prognosis. Patient is DNR Recommending hospice. <carson colunga - Last Filed: 06/22/23 17:42>
[2023-06-22] MEDS: ATORVASTATIN 20 MG TAB PO SCH (20:00)
[2023-06-22] MEDS: AMITRIPTYLINE 25 MG TAB PO SCH (20:00)
[2023-06-22] MEDS: PROPAFENONE 225 MG CAP PO SCH (20:00)
[2023-06-22] MEDS: HYDROXYZINE HCL 10 MG/5 ML SYRUP UD PO SCH (20:05)
[2023-06-23 04:28] LABS: Absolute Lymphocytes (CBC) 2.7 K/uL (0.7-4.9); Lymphocytes % 31.2 % (15.3-44.8); MCV 95.1 fL (80-100); MPV 7.9 fL (7.6-11.3); Platelets 360 thou/uL (152-406); RBC Red Blood Cell Count 4.32 M/uL (3.86-4.86)
[2023-06-23 04:47] LABS: Potassium 3.4 mEq/L (3.5-5.1)
[2023-06-23] MEDS: ENOXAPARIN 30 MG/0.3 ML SQ SCH (10:09)
[2023-06-23] MEDS: POTASSIUM CL SA 10 MEQ TAB PO ONE ×2 (10:57→11:00)
--- NOTE | 2023-06-23 15:50 | P.PN ---
Date of Service: 06/23/23 Subjective Sleeping on rounds this morning Awake few hours later, removed dentures dementia noted ROS 10 point ROS as noted above, otherwise negative Physical Exam General: Alert and oriented, cachectic, NAD, dementia HEENT: Other (Bruising to left maxilla) Neck: 2+ carotid pulse no bruit, JVD not distended Respiratory: Clear to auscultation bilaterally, symmetrical chest wall movement, on room air Cardiovascular: regular rate rhythm, No edema, normal S1 S2, no murmur noted Capillary refill: <2 Seconds Gastrointestinal: Normoactive bowel sounds, ND/NT on palpation, Soft and benign Integumentary: Skin breakdown (face and left ankle) Neurological: Other (not conversing) Vitals Reviewed Problem list Trauma falls, frequent falls, history of Alzheimer noncompliant with alzheimer medications Mild compression fracture involving thoracic spine Aggitation Afib with RVR in a patient with Afib, noncompliant Elevated troponin Weakness 2/2 dehydration Cachectic Decreased p.o. intake UTI Leukocytosis Hypokalemia History of COPD Assessment and Plan Trauma falls, frequent falls, history of Alzheimer noncompliant with alzheimer medications Mild compression fracture involving thoracic spine Aggitation -Continue home medication -Pain medication -Supportive care -Family Sitting with with her all day and night -RIVET TOSSER consulted- recommend minced moist meat with thin liquids -PT consult-gait training 150' 06/22 -UA with hyaline casts 5-10 -IV fluids 500 mL normal saline given in the ED Afib with RVR in a patient with Afib, noncompliant Elevated troponin -continue home medications -BNP 2423 -continue lasix daily -Troponin 260.3, 199.6, 165.3 -ECHO 06/21 Reports "EF 55%,Trace mitral Regurgitaion, Modarate tricuspid Regurgitation, mild pulmonary HTN." -Cardiology consult- recommended losartan 25 mg TID, lasix 20 mg D, stop lovenox, continue ASA- high fall risk, will not tolerate NOAC -IV fluids 500 mL normal saline given in the ED -EKG- Rate is 89 beats/min. Rhythm is regular. QRS [place] is Normal. [place] interval is normal. QRS interval is normal. QT interval is normal. No Q waves. T waves are Normal. No ST changes noted. Clinical impression: NSR w/ Non-specific ST/T Changes. Weakness 2/2 dehydration Cachectic Decreased p.o. intake -Consult dietitian- minced and moist diet with thin liquids -Monitor nutrition -PT consulted- gait training 150' 06/22 UTI Leukocytosis -WBC 8.8-improved -UA with bacteria greater than 50 -continue Rocephin Hypokalemia -Potassium 3.4 -Replace as needed -Monitor in a.m. lab History of COPD -Oxygen supplementation PRN -Restart home medications when available Of note, is showing distress. Protective services called him this morning to check on him and that has upset him. He reports being under a lot of stress with his 's current condition. He has very little help from his son during the workweek. Son was available this weekend to sit with his mother throughout the night. DVT PPx therapeutic Lovenox DNR LOS 2 to 3 days
[2023-06-23] MEDS: TRAZODONE 50 MG TABLET PO SCH (21:04)
[2023-06-24 04:35] LABS: Hematocrit 40.2 % (36.0-45.0); Lymphocytes % 16.5 % (15.3-44.8); MCV 95.5 fL (80-100); MPV 8.3 fL (7.6-11.3); Platelets 354 thou/uL (152-406); RBC Red Blood Cell Count 4.21 M/uL (3.86-4.86)
[2023-06-24 04:45] LABS: Magnesium 2.1 mg/dL (1.6-2.4); Potassium 3.9 mEq/L (3.5-5.1)
[2023-06-24] MEDS: MAGNESIUM CITRATE 300 ML BOT PO ONE (10:00)
--- NOTE | 2023-06-24 14:30 | EKG ---
Test Date: 2023-06-23 Test Time: 14:18:30 Cardiovascular Sonographer: SHAZIA MEASUREMENT RESULTS: Intervals: Rate: 100 MD: 132 QRSD: 86 QT: 350 QTc: 451 [place]: P: 74 MD: 132 QRS: 84 T: 77 INTERPRETIVE STATEMENTS: Sinus rhythm with occasional premature ventricular complexes Right atrial enlargement Borderline ECG Compared to ECG 06/21/2023 08:44:30 Ventricular premature complex(es) now present Incomplete right bundle-branch block no longer present Electronically Signed On 06-24-23 14:26:33 SPLASH LINE OPERATOR by Trever Case
--- NOTE | 2023-06-24 14:41 | EKG ---
Test Date: 2023-06-21 Test Time: 08:44:30 Ase Master Mechanic: INA MEASUREMENT RESULTS: Intervals: Rate: 81 DC: 146 QRSD: 110 QT: 398 QTc: 462 [place]: P: 70 DC: 146 QRS: 83 T: 63 INTERPRETIVE STATEMENTS: Normal sinus rhythm Possible Left atrial enlargement Incomplete right bundle branch block Borderline ECG Compared to ECG 06/20/2023 12:40:50 ST (T wave) deviation no longer present Electronically Signed On 06-24-23 14:31:03 LABOR UTILIZATION SUPERINTENDENT by Trever Case
--- NOTE | 2023-06-24 14:44 | EKG ---
Test Date: 2023-06-20 Test Time: 12:40:50 Head Cager: CARMEN MEASUREMENT RESULTS: Intervals: Rate: 89 [place]: 156 QRSD: 94 QT: 380 QTc: 462 [place]: P: 80 [place]: 156 QRS: 88 T: 77 INTERPRETIVE STATEMENTS: Normal sinus rhythm Incomplete right bundle branch block Nonspecific ST abnormality Abnormal ECG Compared to ECG 05/01/2012 06:52:28 ST (T wave) deviation now present Right-axis deviation no longer present Electronically Signed On 06-24-23 14:32:04 BRUSH LOADER AND HANDLE ATTACHER by Trever Case
--- NOTE | 2023-06-24 18:27 | P.PN ---
Date of Service: 06/24/23 Subjective Awake, Dentures in protective cup with lid on at the sink. struggles to sleep at night. She worked with therapy, 120' ambulation ROS 10 point ROS as noted above, otherwise negative Physical Exam General: Alert and oriented x1, cachectic, NAD, dementia HEENT: Other (Bruising to left maxilla) Neck: 2+ carotid pulse no bruit, JVD not distended Respiratory: nonlabored breathing, Clear to auscultation bilaterally, symmetrical chest wall movement, on room air Cardiovascular: RRR, S1 S2 present, no murmur noted Capillary refill: <2 Seconds Gastrointestinal: Normoactive bowel sounds, ND/NT on palpation, Soft and benign Integumentary: Skin breakdown (face and left ankle) Neurological: Other (not conversing) Vitals Reviewed Problem list Trauma falls, frequent falls, history of Alzheimer noncompliant with alzheimer medications Mild compression fracture involving thoracic spine Aggitation Afib with RVR in a patient with Afib, noncompliant Elevated troponin Weakness 2/ dehydration Cachectic Decreased p.o. intake UTI Leukocytosis Hypokalemia History of COPD Assessment and Plan Trauma falls, frequent falls, history of Alzheimer noncompliant with alzheimer medications Mild compression fracture involving thoracic spine Aggitation -Continue home medication -Pain medication -Supportive care -Family Sitting with with her all day and night -WALL ATTENDANT consulted- recommend minced moist meat with thin liquids -PT consult-gait training 120' 06/24 -UA with hyaline casts 5-10 -IV fluids 500 mL normal saline given in the ED Afib with RVR in a patient with Afib, noncompliant Elevated troponin -continue home medications -BNP 2423 -continue lasix daily -Troponin 260.3, 199.6, 165.3 -ECHO 06/21 Reports "EF 55%,Trace mitral Regurgitaion, Modarate tricuspid Regurgitation, mild pulmonary HTN." -Cardiology consult- recommended losartan 25 mg TID, lasix 20 mg D, stop lovenox, continue ASA- high fall risk, will not tolerate NOAC -IV fluids 500 mL normal saline given in the ED -EKG- Rate is 89 beats/min. Rhythm is regular. QRS [place] is Normal. [place] interval is normal. QRS interval is normal. QT interval is normal. No Q waves. T waves are Normal. No ST changes noted. Clinical impression: NSR w/ Non-specific ST/T Changes. Weakness 2/2 dehydration Cachectic Decreased p.o. intake -Consult dietitian- minced and moist diet with thin liquids -Monitor nutrition UTI Leukocytosis -WBC 8.8-improved -UA with bacteria greater than 50 -continue Rocephin Hypokalemia -Potassium 3.9 -Replace as needed -continue to Monitor in a.m. lab History of COPD -Oxygen supplementation PRN -Restart home medications when available Of note, is showing distress. Protective services was contacted and they have reached out to him. This caused more distress. His comments are made to SW and nurses but not to the providers. DVT PPx therapeutic Lovenox DNR LOS 2 to 3 days
[2023-06-25 04:35] LABS: Absolute Lymphocytes (CBC) 2.2 K/uL (0.7-4.9); Lymphocytes % 23.5 % (15.3-44.8); MCV 95.3 fL (80-100); MPV 8.2 fL (7.6-11.3); Platelets 351 thou/uL (152-406)
[2023-06-25 04:48] LABS: Magnesium 2.8 mg/dL (1.6-2.4); Potassium 4.8 mEq/L (3.5-5.1)
[2023-06-25] MEDS: FUROSEMIDE 20 MG TABLET PO SCH (09:00)
--- NOTE | 2023-06-25 13:33 | P.PN ---
Date of Service: 06/25/23 Subjective Drowsy this morning Had been working well with PT ROS 10 point ROS as noted above, otherwise negative Physical Exam General: Alert and oriented x1, cachectic, NAD, dementia HEENT: Other (Bruising to left maxilla) Neck: 2+ carotid pulse no bruit, JVD not distended Respiratory: nonlabored breathing, Clear to auscultation bilaterally, symmetrical chest wall movement, on room air Cardiovascular: RRR, S1 S2 present, no murmur noted Capillary refill: <2 Seconds Gastrointestinal: Normoactive bowel sounds, ND/NT on palpation, Soft and benign Integumentary: Skin breakdown (face and left ankle) Neurological: Other (not conversing) Vitals Reviewed Problem list Frequent falls, history of Alzheimer with agitation/delerium Mild compression fracture involving thoracic spine Chronic atrial fibrillation-not on chronic anticoagulation Elevated troponin Weakness/debility Cachectic UTI Leukocytosis Hypokalemia History of COPD Plan Frequent falls, history of Alzheimer with agitation/delerium Mild compression fracture involving thoracic spine -Continue home medication -Pain medication -Supportive care -Family Sitting with with her all day and night -SUPERVISOR ENGINES ROAD consulted- recommend minced moist meat with thin liquids -PT consult-gait training 120' 06/24 -UA with hyaline casts 5-10 -IV fluids 500 mL normal saline given in the ED Chronic atrial fibrillation-not on chronic anticoagulation Elevated troponin -Suspect elevated troponin from demand ischemia -continue home medications -BNP 2423 -continue lasix daily -Troponin 260.3, 199.6, 165.3 -ECHO 06/21 Reports "EF 55%,Trace mitral Regurgitaion, Modarate tricuspid Regurgitation, mild pulmonary HTN." -Cardiology consult- recommended losartan 25 mg TID, lasix 20 mg D, stop lovenox, continue ASA-not a good candidate for therapeutic anticoagulation in regards to her atrial fibrillation given significant fall risk Weakness/Debility Cachectic -Consult dietitian- minced and moist diet with thin liquids -Monitor nutrition UTI Leukocytosis -WBC 8.8-improved -UA with bacteria greater than 50 -continue Rocephin Hypokalemia -Potassium 3.9 -Replace as needed -continue to Monitor in a.m. lab History of COPD -Oxygen supplementation PRN -Restart home medications when available DVT PPx therapeutic Lovenox DNR LOS 2 to 3 days <Patrick Ashby - Last Filed: 06/25/23 13:29> Patient seen and examined on rounds this morning with HAND COKE DRAWER Symone. Agree with plan of care as noted above with following additions / corrections: Discussed with son and at bedside Patient with progressive worsening of dementia over last several months Family state she had a significant decline - "like a flip of a switch" starting after initial fall ~3 weeks ago, and then a 2nd steep decline after recent fall since most recent fall patient has had one "Good" day, where she was able to speak more clearly and ambulate; however in the evening she worsened again. Today, she has been refusing PO intake and not wanting to take meds family uncertain for what duration of time patient ran out of "dementia" medication <Eduin Curran - Last Filed: 06/25/23 21:30>
[2023-06-26 04:13] LABS: Hematocrit 42.4 % (36.0-45.0); MCV 95.1 fL (80-100); MPV 8.1 fL (7.6-11.3); Platelets 387 thou/uL (152-406); RBC Red Blood Cell Count 4.46 M/uL (3.86-4.86)
[2023-06-26 04:40] LABS: Potassium 4.8 mEq/L (3.5-5.1)
[2023-06-26] MEDS ORDERED: HYDROCODONE/APAP 7.5/325 MG TAB PO PRN (07:02)
[2023-06-26 08:12] LABS: Magnesium 2.7 mg/dL (1.6-2.4); Phosphorus 3.1 mg/dL (2.5-4.9); Thyroid Stimulating Hormone 1.46 uIU/mL (0.358-3.740)
--- NOTE | 2023-06-26 13:24 | P.PN ---
Date of Service: 06/26/23 Subjective Confused Stated she was at her mom's house Repeated throat clearing noted ROS 10 point ROS as noted above, otherwise negative Physical Exam General: Alert and oriented x1, cachectic, NAD, dementia HEENT: Other (Bruising to left maxilla) Neck: 2+ carotid pulse no bruit, JVD not distended Respiratory: nonlabored breathing, Clear to auscultation bilaterally, symmetrical chest wall movement, on room air Cardiovascular: RRR, S1 S2 present, no murmur noted Capillary refill: <2 Seconds Gastrointestinal: Normoactive bowel sounds, ND/NT on palpation, Soft and benign Integumentary: Skin breakdown (face and left ankle) Neurological: Other (not conversing) Vitals Reviewed Problem list Frequent falls, history of Alzheimer with agitation/delerium Mild compression fracture involving thoracic spine Chronic atrial fibrillation-not on chronic anticoagulation Elevated troponin Weakness/debility Cachectic UTI Leukocytosis Hypokalemia History of COPD Plan Frequent falls, history of Alzheimer with agitation/delerium Mild compression fracture involving thoracic spine -Continue home medication -NETSUITE DEVELOPER consulted- recommend minced moist meat with thin liquids -Reconsulted speech given persistent throat clearing -PT consult-gait training 120' 06/24 -Persistent disorientation/confusion -Neurology consulted Chronic atrial fibrillation-not on chronic anticoagulation Elevated troponin -Suspect elevated troponin from demand ischemia -continue home medications -Troponin 260.3, 199.6, 165.3 -ECHO 06/21 Reports "EF 55%,Trace mitral Regurgitaion, Modarate tricuspid Regurgitation, mild pulmonary HTN." -Cardiology consult- recommended losartan 25 mg TID, lasix 20 mg D, stop lovenox, continue ASA-not a good candidate for therapeutic anticoagulation in r egards to her atrial fibrillation given significant fall risk Weakness/Debility Cachectic -Consult dietitian- minced and moist diet with thin liquids -Monitor nutrition UTI Leukocytosis -Urine culture with 10-100,000 mixed yulisa Received 4 days of IV Rocephin noted continued Hypokalemia -Replace as needed History of COPD -Oxygen supplementation PRN DVT PPx therapeutic Lovenox DNR LOS 2 to 3 days <Patrick Ashby - Last Filed: 06/26/23 13:22> date of service: 06/26/23 Patient seen and examined on rounds this morning with CENTER MAKER HAND Symone. Agree with plan of care as noted above with the following additions / corrections: No change / improvement of mentation. Mumbles words / difficult to understand. and son at bedside. Concern for possible aspiration discussed obtaining MRI to eval for CVA family considering hospice, will consult for further information <Eduin Curran - Last Filed: 06/27/23 21:51>
--- NOTE | 2023-06-26 13:46 | RAD REPORT ---
EXAM DESCRIPTION: RAD - Chest Single View - 06/26/2023 1:36 pm CLINICAL HISTORY: R/o aspiration Chest pain. COMPARISON: Chest Single View dated 06/20/2023; Chest Pa And Lat (2 Views) dated 08/19/2018; Chest Sin gle View dated 04/20/2016; CHEST PA AND LAT 2 VIEW dated 08/25/2013 FINDINGS: Portable technique limits examination quality. The lungs are emphysematous but grossly clear. The heart is normal in size. No displaced fractures. IMPRESSION: No acute intrathoracic process suspected.
--- NOTE | 2023-06-26 19:52 | RAD REPORT ---
EXAM DESCRIPTION: MRI - Brain Wo Cont - 06/26/2023 7:34 pm CLINICAL HISTORY: confusion, dysarthria Headache, drowsiness COMPARISON: Brain W/Wo Cont dated 07/06/2019 TECHNIQUE: Multi-sequence, multiplanar MR imaging of the brain was performed without contrast. FINDINGS: Motion degradation is present. No intracranial hemorrhage, hydrocephalus or extra-axial fl uid collections.Moderate confluent T2/FLAIR hyperintensity in the periventricular and deep white itz er is present compatible with chronic microvascular ischemic changes. No edema or shift of midline st ructures. No findings to suspect brain mass. Linear 7 mm area of restricted diffusion right cerebella r hemisphere. This likely represents small linear infarct. Midline structures are normally formed. Mastoid air cells and paranasal sinuses are clear. 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 No hemorrhage or midline shift.
[2023-06-27 04:03] LABS: Hematocrit 42.9 % (36.0-45.0); MCV 95.5 fL (80-100); MPV 8.7 fL (7.6-11.3); Platelets 363 thou/uL (152-406); RBC Red Blood Cell Count 4.49 M/uL (3.86-4.86)
[2023-06-27 04:14] LABS: Potassium 4.3 mEq/L (3.5-5.1)
[2023-06-27] MEDS: CLOPIDOGREL 75 MG TABLET PO SCH (09:00)
[2023-06-27] MEDS ORDERED: MIDAZOLAM HCL 2 MG/2 ML INJ IV PRN (09:50)
[2023-06-27] MEDS: SCOPOLAMINE HYDROBROMIDE PATCH TD SCH (09:59)
[2023-06-27] MEDS: MORPHINE 2 MG/ML SYR IV PRN (09:59)
[2023-06-27 11:13] VITALS: BP 116/67; TEMP 99.2
--- NOTE | 2023-06-27 12:27 | P.PN ---
Date of Service: 06/27/23 Subjective Confused Worsening dysphagia less responsive trouble swallowing secretions ROS 10 point ROS as noted above, otherwise negative Physical Exam General: confused/drowsy, cachectic, NAD, dementia HEENT: Other (Bruising to left maxilla) Neck: 2+ carotid pulse no bruit, JVD not distended Respiratory: nonlabored breathing, Clear to auscultation bilaterally, symmetrical chest wall movement, on room air Cardiovascular: RRR, S1 S2 present, no murmur noted Capillary refill: <2 Seconds Gastrointestinal: Normoactive bowel sounds, ND/NT on palpation, Soft and benign Integumentary: Skin breakdown (face and left ankle) Neurological: Other (not conversing) Vitals Reviewed Problem list Frequent falls, history of Alzheimer with agitation/delerium Mild compression fracture involving thoracic spine Chronic atrial fibrillation-not on chronic anticoagulation Elevated troponin Weakness/debility Cachectic UTI Leukocytosis Hypokalemia History of COPD Plan Acute CVA Frequent falls, history of Alzheimer with agitation/delerium Mild compression fracture involving thoracic spine Patient with persistent significant clinical worsening Discussed at length with family at bedside including Family chooses to pursue comfort measures/possible inpatient hospice client services specialist consulted Started on scopolamine, as needed medications for pain and anxiety Chronic atrial fibrillation-not on chronic anticoagulation Elevated troponin Weakness/Debility Cachectic UTI Leukocytosis Hypokalemia History of COPD Comfort measures only going forward DVT PPx: none DNR LOS 2 to 3 days <Patrick Ashby - Last Filed: 06/27/23 12:24> Patient seen and examined on rounds this morning with BEAN SPROUT LABORER Symone. Agree with plan of care as noted above with the following additions / corrections: acute CVA on MRI updated at bedside seems to be weaker this morning, less protective of her airway / less able to manage her oral secretions Discussed goals of care. states he spoke with her son, and both in agreement she would not want to have her life prolonged in a state like this. has requested comfort measures only going forward inpatient hospice eval consult placed. <Eduin Curran - Last Filed: 06/27/23 21:52>
[2023-06-27 13:00] VITALS: O2SAT 96
--- NOTE | 2023-06-27 13:48 | P.DS ---
Admission Date: 06/21/23 Discharge Date: 06/27/23 Reason for Admission: Afib with RVR Brief History of Present Illness: Soraya Fernandes is a 77-year-old female with medical past medical history of atrial fibrillation, Alzheimer's, COPD who presents to the ED with complaints of frequent falls. EMS reports hypotension and Afib with RVR during transit. ER has stabilized condition. Family reports she has fallen frequently but was able to ambulate and cook for herself a few days ago. reports she had run out of Alzheimer's medication and heart medication. He is unable to afford the heart medication due to the new hobbs. He is working with long term care social worker to provide help at home. On examination, she was extremely agitated, coming out of the bed, and confused. Facial bruising present to left maxilla. Bruising to left ankle. and son at the bedside and son plans to stay the night to be her sitter. Initial vitals BP 148 / 61; Pulse 90; Resp 16; Temp 97.8; Pulse Ox 99% on 3 lpm NC Laboratory evaluation WBC 19.4, neutrophils 90.4, potassium 3.0, troponin 260.3, BNP 2423, UA with bacteria greater than 50, hyaline casts 5-10. Left ankle x-ray reports "No acute osseous abnormality. Advanced degenerative changes at the tibiotalar articulation. Large joint effusion versus non mineralized intra-articular bodies." CT head reports "No intracranial hemorrhage, hydrocephalus or extra-axial fluid collection. Moderate generalized brain atrophy is present with mild periventricular and deep white matter chronic microvascular ischemic changes. No areas of brain edema or midline shift. The paranasal sinuses and mastoids are essentially clear. The calvarium is intact" CT c spine reports " No fracture or subluxation. Moderate multilevel cervical degenerative changes are present, most notable at C5-6. The prevertebral soft tissues are normal in thickness." CT CAP with contrast reports "Negative for definitive acute traumatic findings. Age indeterminate mild compression fractures involving the thoracic spine. These may represent acute to subacute time frame fractures given the mild thickening of the surrounding paraspinal tissues. Follow-up nonemergent MRI imaging could be performed if the patient has significant back pain." CXR reports "Portable technique limits examination quality. The lungs are emphysematous but grossly clear. The heart is normal in size. No displaced fractures. IMPRESSION: No acute intrathoracic process suspected." Soraya will be admitted to hospitalist service for further evaluation and treatment. of Afib with RVR. Her son will stay the night to sit with her Hospital Course: Problem list Acute CVA Frequent falls, history of Alzheimer with agitation/delerium Mild compression fracture involving thoracic spine Chronic atrial fibrillation-not on chronic anticoagulation Elevated troponin Weakness/debility Cachectic UTI Leukocytosis Hypokalemia History of COPD Patient was admitted to the hospital for AMS, agitation, atrial fibrillation with rapid ventricular response and elevated troponin. Throughout the course of her hospitalization her cognition continues to decline, she developed progressive issues with her speech and ability to swallow. Subsequent MRI was obtained which revealed 7 millimeter acute CVA. After further discussion with patient's family and they elected to proceed with comfort measures and inpatient hospice. <Patrick Ashby - Last Filed: 06/27/23 13:44> Admission Date: 06/21/23 Discharge Date: 06/27/23 <Eduin Curran - Last Filed: 06/27/23 21:49> Disposition: HOSPICE-MEDICAL FACILITY Discharge Condition: SERIOUS Vital Signs/Physical Exam: Temp Pulse Resp BP Pulse Ox 99.2 F 92 H 17 116/67 96 06/27/23 10:52 06/27/23 10:52 06/27/23 10:52 06/27/23 10:52 06/27/23 10:52 General: Alert, In no apparent distress, Demented, Confused HEENT: Atraumatic, PERRLA Neck: Supple Respiratory: Diminished Cardiovascular: Normal S1 S2, Irregular heart rate/rhythm Gastrointestinal: Normal bowel sounds Musculoskeletal: No tenderness Neurological: Abnormal speech, Abnormal strength Laboratory Data at Discharge: WBC 11.00 thou/uL (4.3-10.9) H 06/27/23 03:09 Hgb 14.2 g/dL (12.0-15.0) 06/27/23 03:09 Hct 42.9 % (36.0-45.0) 06/27/23 03:09 Plt Count 363 thou/uL (152-406) 06/27/23 03:09 PT 12.8 SECONDS (9.5-12.5) H 06/20/23 11:53 INR 1.17 06/20/23 11:53 APTT 31.3 SECONDS (24.3-36.9) 06/20/23 11:53 Sodium 139 mEq/L (136-145) 06/27/23 03:09 Potassium 4.3 mEq/L (3.5-5.1) 06/27/23 03:09 BUN 37 mg/dL (7-18) H 06/27/23 03:09 Creatinine 0.79 mg/dL (0.55-1.02) 06/27/23 03:09 Glucose 130 mg/dL (74-106) H 06/27/23 03:09 Phosphorus 3.1 mg/dL (2.5-4.9) 06/26/23 03:39 Magnesium 2.7 mg/dL (1.6-2.4) H 06/26/23 03:39 Total Bilirubin 0.7 mg/dL (0.2-1.0) 06/20/23 11:53 AST 11 U/L (15-37) L 06/20/23 11:53 ALT 13 U/L (13-56) 06/20/23 11:53 Alkaline Phosphatase 133 U/L (45-117) H 06/20/23 11:53 <Patrick Ashby - Last Filed: 06/27/23 13:44> Vital Signs/Physical Exam: Temp Pulse Resp BP Pulse Ox 99.2 F 92 H 17 116/67 96 06/27/23 10:52 06/27/23 10:52 06/27/23 10:52 06/27/23 10:52 06/27/23 10:52 Laboratory Data at Discharge: WBC 11.00 thou/uL (4.3-10.9) H 06/27/23 03:09 Hgb 14.2 g/dL (12.0-15.0) 06/27/23 03:09 Hct 42.9 % (36.0-45.0) 06/27/23 03:09 Plt Count 363 thou/uL (152-406) 06/27/23 03:09 PT 12.8 SECONDS (9.5-12.5) H 06/20/23 11:53 INR 1.17 06/20/23 11:53 APTT 31.3 SECONDS (24.3-36.9) 06/20/23 11:53 Sodium 139 mEq/L (136-145) 06/27/23 03:09 Potassium 4.3 mEq/L (3.5-5.1) 06/27/23 03:09 BUN 37 mg/dL (7-18) H 06/27/23 03:09 Creatinine 0.79 mg/dL (0.55-1.02) 06/27/23 03:09 Glucose 130 mg/dL (74-106) H 06/27/23 03:09 Phosphorus 3.1 mg/dL (2.5-4.9) 06/26/23 03:39 Magnesium 2.7 mg/dL (1.6-2.4) H 06/26/23 03:39 Total Bilirubin 0.7 mg/dL (0.2-1.0) 06/20/23 11:53 AST 11 U/L (15-37) L 06/20/23 11:53 ALT 13 U/L (13-56) 06/20/23 11:53 Alkaline Phosphatase 133 U/L (45-117) H 06/20/23 11:53 <Eduin Curran - Last Filed: 06/27/23 21:49> Time spent managing pt's care (in minutes): 30 <Patrick Ashby - Last Filed: 06/27/23 13:44> Physician Review: Patient Assessed, Agree with Above Assessment and Plan (Patient seen and examined on rounds this morning with MINE MOTOR OPERATOR Symone. Agree with plan of care as noted above. Had multiple discussions with at bedside regarding goals of care and prognosis. Reviewed MRI findings of acute CVA in addition to her worsening end stage dementia) <Eduin Curran - Last Filed: 06/27/23 21:49> Home Medications: Cyanocobalamin [Vitamin B-12*] 1,000 mcg PO DAILY 04/30/12 Multivitamin [Multivitamins] 1 each PO DAILY 04/30/12 Amitriptyline [Elavil*] 25 mg PO BEDTIME 06/22/23 Atorvastatin Calcium 20 mg PO DAILY 06/22/23 Donepezil [Aricept*] 10 mg PO BID 06/22/23 Fluticasone [Flonase 50MCG Nasal [place]*] 2 spray IN BID 06/22/23 Hydroxyzine HCl [Atarax] 10 mg PO BID 06/22/23 Irbesartan 150 mg PO DAILY 06/22/23 Memantine HCl 10 mg PO BID 06/22/23 Propafenone [Rythmol SR] 225 mg PO BID 06/22/23 Physician Discharge Instructions: Patient was admitted to the hospital for AMS, agitation, atrial fibrillation with rapid ventricular response and elevated troponin. Throughout the course of her hospitalization her cognition continued to decline, she developed progressive issues with her speech and ability to swallow. Subsequent MRI was obtained which revealed 7 millimeter acute CVA. After further discussion with patient's family and they elected to proceed with comfort measures and inpatient hospice. Hospice Care Team-Rep Rocio Lopez P:[phone] F:[phone] Payment Poster: Dr. Garzon Followup: Kevin Dawn MD [Primary Care Provider] -
== END 2023-06-27 15:29 | disposition hospice, inpatient (51) | DRG 551 ==
LOC: ER 10:44 → ERHOLD 17:59 → 2ND 20:39 → OBSVTOIN 06-21 17:48
PROVIDERS: ADMIT Internal Medicine; ATTEND Hospitalist
DX: S22.060A Wedge compression fracture of T7-T8 vertebra, initial encounter for closed fracture (principal); I63.9 Cerebral infarction, unspecified; F02.811 Dementia in other diseases classified elsewhere, unspecified severity, with agitation; R64 Cachexia; Z68.1 Body mass index [BMI] 19.9 or less, adult; N39.0 Urinary tract infection, site not specified; I50.32 Chronic diastolic (congestive) heart failure; F05 Delirium due to known physiological condition; F02.84 Dementia in other diseases classified elsewhere, unspecified severity, with anxiety; I24.89 Other forms of acute ischemic heart disease; G30.9 Alzheimer's disease, unspecified; I48.0 Paroxysmal atrial fibrillation; E86.0 Dehydration; E87.6 Hypokalemia; I08.1 Rheumatic disorders of both mitral and tricuspid valves; I27.20 Pulmonary hypertension, unspecified; J44.9 Chronic obstructive pulmonary disease, unspecified; S93.492A Sprain of other ligament of left ankle, initial encounter; S09.90XA Unspecified injury of head, initial encounter; S22.080A Wedge compression fracture of T11-T12 vertebra, initial encounter for closed fracture; F17.200 Nicotine dependence, unspecified, uncomplicated; R13.10 Dysphagia, unspecified; R29.6 Repeated falls; Z66 Do not resuscitate; Z51.5 Encounter for palliative care; Z91.81 History of falling; Z79.52 Long term (current) use of systemic steroids; Z79.01 Long term (current) use of anticoagulants; Z79.82 Long term (current) use of aspirin; Z91.148 Patient's other noncompliance with medication regimen for other reason; Z79.899 Other long term (current) drug therapy; Z91.141 Patient's other noncompliance with medication regimen due to financial hardship; W19.XXXA Unspecified fall, initial encounter; Y93.9 Activity, unspecified; Y92.9 Unspecified place or not applicable; Y99.9 Unspecified external cause status
CPT/HCPCS: 36415; 70450; 70551; 71045; 71260; 72125; 74177; 80048; 80053; 81001; 82565; 83036; 83605; 83735; 83880; 84100; 84132; 84439; 84443; 84484; 85025; 85027; 85610; 85730; 87040; 87086; 87088; 92523; 92526; 92610; 93005; 93306; 96374; 97110; 97116; 97129; 97161; 97530; 99285; G0378; J0696; J1630; J1650; J1940; J2270; J3480; J7040; Q9967